=== PATIENT | male | born 1990 | race Caucasian/White ===

== ENCOUNTER 2016-10-04 23:51 | Emergency (ER) | payer BC, OTHER ==
[2016-10-04 23:57] VITALS: BMI 27.1
--- NOTE | 2016-10-05 00:01 | ED PDOC ---
Arrival/HPI - General Time Seen by Provider: 10/04/16 23:54 Historian: Patient - History of Present Illness Narrative History of Present Illness (Text): 10/05/16 00:00 Avery Gillis is a 26 year old male, whose past medical history includes Hogkin's lymphoma currently in remission, avascular necrosis, and bilateral hip replacement, who presents to the Emergency department complaining of left-sided chest pain radiating to his left arm today. Patient states he originally attributed symptoms to indigestion and took Pepcid at home but denies any relief. Patient notes he recently had bone graft surgery performed on his right knee on 09/23/2016. Patient denies any fever, chills, chest pain, shortness of breath, nausea, vomiting, diarrhea, urinary symptoms, back pain, neck pain, headache, dizziness, or any other complaints. Time/Duration: Other (today) Symptom Onset: Gradual Symptom Course: Unchanged Activities at Onset: Rest, Light Context: Home Past Medical History - Provider Review Nursing Documentation Reviewed: Yes Family/Social History - Physician Review Nursing Documentation Reviewed: Yes Family/Social History: No Known Family HX Allergies/Home Meds Allergies/Adverse Reactions: Allergies adhesive tape Allergy (Verified 10/04/16 23:58) RASH Home Medications: Home Meds Medication Instructions Recorded Confirmed Aspirin [Ecotrin] 81 mg PO DAILY 10/05/16 10/05/16 oxyCODONE/Acetaminophen [Percocet 1 tab PO HS 10/05/16 10/05/16 5/325 mg Tab] Review of Systems - Physician Review All systems were reviewed & negative as marked: Yes - Review of Systems Constitutional: Normal. absent: Fevers Eyes: Normal ENT: Normal Respiratory: Normal. absent: SOB, Cough Cardiovascular: Chest Pain Gastrointestinal: Normal. absent: Abdominal Pain, Diarrhea, Nausea, Vomiting Genitourinary Male: Normal. absent: Dysuria, Frequency, Hematuria, Urinary Output Changes Musculoskeletal: absent: Back Pain, Neck Pain Skin: Normal. absent: Rash Neurological: Normal. absent: Headache, Dizziness Endocrine: Normal Hemo/Lymphatic: Normal Psychiatric: Normal Physical Exam Vital Signs Reviewed: Yes Vital Signs Temp Pulse Pulse Resp BP Pulse Ox 10/05/16 02:40 16 98 10/05/16 02:13 93 H 19 100 10/05/16 00:40 89 10/05/16 00:13 98 F 96 H 16 140/89 100 Temperature: Afebrile Blood Pressure: Normal Pulse: Regular Respiratory Rate: Normal Appearance: Positive for: Well-Appearing, Non-Toxic, Comfortable Pain Distress: None Mental Status: Positive for: Alert and Oriented X 3 - Systems Exam Head: Present: Atraumatic, Normocephalic Pupils: Present: PERRL Extroacular Muscles: Present: EOMI Conjunctiva: Present: Normal Mouth: Present: Moist Mucous Membranes Neck: Present: Normal Range of Motion Respiratory/Chest: Present: Clear to Auscultation, Good Air Exchange. No: Respiratory Distress, Accessory Muscle Use Cardiovascular: Present: Regular Rate and Rhythm, Normal S1, S2. No: Murmurs Abdomen: Present: Normal Bowel Sounds. No: Tenderness, Distention, Peritoneal Signs Back: Present: Normal Inspection Upper Extremity: Present: Normal Inspection. No: Cyanosis, Edema Lower Extremity: Present: Normal Inspection. No: Edema Neurological: Present: GCS=15, CN II-XII Intact, Speech Normal Skin: Present: Warm, Dry, Normal Color. No: Rashes Psychiatric: Present: Alert, Oriented x 3, Normal Insight, Normal Concentration Medical Decision Making ED Course and Treatment: 10/05/16 00:00 Impression: 26 year old male complaining of left-sided chest pain radiating to left arm. Differential Diagnosis include but are not limited to: PE vs. musculoskeletal pain vs. ACS vs. chest pain Plan: -- CTA Chest -- EKG -- Labs, cardiac enzymes, D-dimer -- UA -- Reassess and disposition Progress Notes: Reviewed EKG, NSR at [address]-segment elevations or depressions, no T-wave inversions, normal intervals. 10/05/16 02:00 Reviewed radiology, CTA Chest shows: Pulmonary arteries: No acute findings. No pulmonary embolism. Aorta: No acute findings. No thoracic aortic aneurysm. Lungs: No acute findings. No mass. No consolidation. Pleural space: No acute findings. No significant effusion. No pneumothorax. Heart: No acute findings. No cardiomegaly. No significant pericardial effusion. No evidence of RV dysfunction. Bones/joints: No acute fracture. No dislocation. Soft tissues: No acute findings. Lymph nodes: There is right axillary adenopathy Liver: There is hepatomegaly and hepatic steatosis. IMPRESSION: 1. No pulmonary embolism. No pneumonia. 2. There is right axillary adenopathy. 3. There is hepatomegaly and hepatic steatosis. 10/05/16 02:30 On re-evaluation, the patient feels better and is in no acute distress. I have discussed the results and plan with the patient, who expresses understanding. Patient in agreement with plan to discharged home. Patient is stable for discharge. Patient was instructed to follow up with physician/clinic in 1-2 days or return if symptoms worsen or new concerning symptoms arise. Re-evaluation Time: 02:32 Reassessment Condition: Re-examined, Improved - Lab Interpretations Lab Results: 10/05/16 00:06 10/05/16 00:06 Lab Results 10/05/16 00:37: Urine Color Yellow, Urine Appearance Clear, Urine pH 6.0, Ur Specific [place] <= 1.005, Urine Protein Negative, Urine Glucose (UA) Negative, Urine Ketones Negative, Urine Blood Negative, Urine Nitrate Negative, Urine Bilirubin Negative, Urine Urobilinogen 0.2, Ur Leukocyte Esterase Negative 10/05/16 00:06: Sodium 140, Potassium 4.4, Chloride 99, Carbon Dioxide 30, Anion Gap 15, BUN 26 H, Creatinine 0.8, Est GFR ( Amer) > 60, Est GFR ( Non-Af Amer) > 60, Random Glucose 109, Calcium 10.4, Magnesium 1.9, Total Bilirubin 0.4, AST 51, ALT 73 H, Alkaline Phosphatase 69, Lactate Dehydrogenase 543, Total Creatine Kinase 197, Troponin I < 0.01, Total Protein 8.8 H, Albumin 4.9 H, Globulin 3.9, Albumin/Globulin Ratio 1.3 10/05/16 00:06: PT 10.2, INR 0.94, APTT 25.0 10/05/16 00:06: WBC 10.4, RBC 5.76, Hgb 13.4 L, Hct 41.3 L, MCV 71.7 L, MCH 23.3 L, MCHC 32.4, RDW 17.8 H, Plt Count 357, MPV 9.2, Gran % 52.3, Lymph % ( Auto) 35.2 H, [place] % (Auto) 6.2 H, Eos % (Auto) 5.6 H, Baso % (Auto) 0.7, Gran # 5.42, Lymph # 3.6 H, [place] # 0.6, Eos # 0.6, Baso # 0.07 I have reviewed the lab results: Yes - RAD Interpretation Radiology Orders: 10/05/16 00:16 ANGIO CHEST PE PROTOCOL [CT] Stat - EKG Interpretation Interpreted by ED Physician: Yes Type: 12 lead EKG - Medication Orders Current Medication Orders: Discontinued Medications Iodixanol (Visipaque 320 Mg/Ml 100 Ml) Confirm Administered Dose 100 ml IV .STK- MED ONE Stop: 10/05/16 00:38 Wells Criteria for PE - Wells Criteria for Pulmonary Embolism Clinical Signs and Symptoms of DVT: No P.E is #1 Diagnosis, or Equally Likely: No Heart Rate >100: No Immobilization at least 3 days;Surgery previous 4 weeks: Yes Previous, objectively diagnosed PE or DVT: No Hemoptysis: No Malignancy w/treatment within 6 months, or palliative: No Total Score: 1.5 - Scribe Statement The provider has reviewed the documentation as recorded by the Scribmica Hutson All medical record entries made by the Scribe were at my direction and personally dictated by me. I have reviewed the chart and agree that the record accurately reflects my personal performance of the history, physical exam, medical decision making, and the department course for this patient. I have also personally directed, reviewed, and agree with the discharge instructions and disposition. Disposition/Present on Arrival - Present on Arrival Any Indicators Present on Arrival: No - Disposition Have Diagnosis and Disposition been Completed?: Yes Diagnosis: Musculoskeletal chest pain Disposition: HOME/ ROUTINE Disposition Time: 02:35 Condition: GOOD Discharge Instructions (ExitCare): Chest Pain (ED)
[2016-10-05 00:16] VITALS: BP 140/89; TEMP 98
[2016-10-05] MEDS ORDERED: Iodixanol 320 MG/ML 100 ML BOTTLE IV ONE (00:37)
[2016-10-05 00:40] LABS: ADD MANUAL DIFF? NO
[2016-10-05 00:45] LABS: BASO # 0.07 K/mm3 (0.0-2.0); BASO % 0.7 % (0.0-3.0); EOS # 0.6 (0.0-0.7); EOS % 5.6 % (1.5-5.0); GRAN # 5.42 (1.4-6.5); GRAN % 52.3 % (50.0-68.0); HEMATOCRIT 41.3 % (42.0-52.0); LYMPH # 3.6 (1.2-3.4); LYMPH % 35.2 % (22.0-35.0); MEAN CELL VOLUME 71.7 fL (80.0-105.0); MEAN CORPUSCULAR HEMOGLOBIN 23.3 pg (25.0-35.0); MEAN CORPUSCULAR HGB CONC 32.4 g/dl (31.0-37.0); MEAN PLATELET VOLUME 9.2 fl (7.0-11.0); MONO # 0.6 (0.1-0.6); MONO % 6.2 % (1.0-6.0); PLATELET COUNT 357 10^3/uL (120.0-450.0); RED CELL DISTRIBUTION WIDTH 17.8 % (11.5-14.5); WHITE BLOOD COUNT 10.4 10^3/ul (4.5-11.0)
[2016-10-05 00:46] LABS: URINE BILIRUBIN NEGATIVE (NEGATIVE); URINE BLOOD NEGATIVE (NEGATIVE); URINE GLUCOSE (UA) NEGATIVE (NEGATIVE); URINE KETONE NEGATIVE (NEGATIVE); URINE LEUKOCYTE ESTERASE NEGATIVE Leu/uL (NEGATIVE); URINE PROTEIN NEGATIVE mg/dL (<30 mg/dL); URINE UROBILINOGEN 0.2 E.U./dL (<1 E.U./dL)
[2016-10-05 00:49] LABS: URINE APPEARANCE CLEAR (CLEAR); URINE COLOR YELLOW (YELLOW)
[2016-10-05 00:54] LABS: ALB/GLOB RATIO 1.3 (1.1-1.8); ALKALINE PHOSPHATASE 69 U/L (38-133); ALT/SGPT 73 U/L (7-56); AST/SGOT 51 U/L (15-59); BILIRUBIN,TOTAL 0.4 mg/dL (0.2-1.3); BLOOD UREA NITROGEN 26 mg/dL (7-21); CALCIUM 10.4 mg/dL (8.4-10.5); CARBON DIOXIDE 30 mmol/L (21-33); CHLORIDE 99 mmol/L (98-107); GFR AFRICAN-AMERICAN > 60; GLUCOSE,RANDOM 109 mg/dL (70-110); MAGNESIUM 1.9 mg/dL (1.7-2.2); POTASSIUM 4.4 mmol/L (3.6-5.0); SODIUM 140 mmol/L (132-148); TOTAL PROTEIN 8.8 g/dL (5.8-8.3)
[2016-10-05 00:55] LABS: INR 0.94 (0.93-1.08)
[2016-10-05 01:18] LABS: TROPONIN I < 0.01 ng/mL
[2016-10-05 02:13] VITALS: PULSE 93
[2016-10-05 02:40] VITALS: RESP 16; O2SAT 98
--- NOTE | 2016-10-05 10:26 | CT ---
PROCEDURE: CT Chest with contrast (Pulmonary Angiogram) HISTORY: cp COMPARISON: None available. TECHNIQUE: Axial computed tomography images were obtained of the chest in the pulmonary arterial phase of enhancement. Coronal and sagittal reformatted images were created and reviewed. Intravenous contrast dose: 100 cc of Visipaque Radiation dose: Total exam DLP = 622 mGy-cm. This CT exam was performed using one or more of the following dose reduction techniques: Automated exposure control, adjustment of the mA and/or kV according to patient size, and/or use of iterative reconstruction technique. FINDINGS: PULMONARY ARTERIES: Unremarkable. No pulmonary embolism. AORTA: No acute findings. No thoracic aortic aneurysm. LUNGS: Unremarkable. No nodule, mass or pulmonary consolidation. PLEURAL SPACES: Unremarkable. No effusion or pneuomothorax. HEART: Unremarkable. No cardiomegaly. No significant pericardial effusion. LYMPH NODES: No lymphadenopathy. BONES, CHEST WALL: Unremarkable. No fracture or destructive lesion OTHER FINDINGS: Severe fatty infiltration of the liver IMPRESSION: No evidence of pulmonary embolus. Right axillary adenopathy Severe fatty infiltration of the liver with hepatomegaly
--- NOTE | 2016-10-05 10:42 | CARD ---
APPROVED REPORT EKG Measurement Heart [id number] <Conclusion> Normal sinus rhythm Normal ECG
== END 2016-10-05 02:40 | disposition home or self-care (01) ==
LOC: ED 23:51
DX: R07.89 Other chest pain (principal)
CPT/HCPCS: 71275; 80053; 81003; 82550; 83615; 83735; 84484; 85025; 85610; 85730; 93005; 99283; Q9967